=== PATIENT | male | born 1985 ===

== ENCOUNTER 2019-03-17 10:04 | Emergency (ER) | payer OTHER, MEDICAID, SELFPAY ==
[2019-03-17] VITALS (7 sets, daily range): BP systolic 101–127; BP diastolic 50–88; PULSE 113–126; RESP 12–26; TEMP 37.2; O2SAT 97–100
--- NOTE | 2019-03-17 11:03 | ED_ITS ---
HPI - Abdominal Pain General Chief Complaint: Abdominal Pain Stated Complaint: high fever/ stomach pain/ chills diarrhea Time Seen by Provider: 03/17/19 10:37 Source: patient and family Mode of arrival: Ambulatory Limitations: no limitations History of Present Illness HPI narrative: Patient is a 33-year-old male with history of multiple substance abuse including methamphetamines and heroin presenting with body aches fever and abdominal pain. He says actually started yesterday but he was able to do okay however this morning he was found in the bathroom after having large episode of diarrhea and significant left-sided abdominal pain. He supposedly had fever of 103 at home he did not take any Tylenol or ibuprofen in is currently afebrile here. He does take HIV preventative medication but does not have HIV. MD complaint: abdominal pain Onset (ago): day(s) (2) Pain Consistency: constant Location: diffuse, LUQ and LLQ Quality: cramping Radiation: none Migration to: no migration Relieving factors: nothing Exacerbating factors: nothing Related Data Allergies Allergy/AdvReac Type Severity Reaction Status Date / Time No Known Drug Allergies Allergy Verified 03/17/19 11:59 Review of Systems Review of Systems Narrative: GENERAL: Denies chills, fatigue, malaise, fever, sweats, travel HEENT: Denies sinus pain, ear pain, sore throat, difficulty swallowing, neck pain RESPIRATORY: Denies dyspnea, cough, wheezing, hemoptysis, sputum. CARDIOVASCULAR: Denies chest pain, palpitations, orthopnea, edema GASTROINTESTINAL: See HPI : Denies dysuria, frequency, incontinence, hematuria, urinary retention, flank pain. MUSCULOSKELETAL: Denies weakness, joint pain, or bony pain SKIN: No rash, no erythema, no pruritus NEUROLOGIC: Denies weakness, dizziness, headache, numbness, change in speech, confusion PSYCHIATRIC: No concerning psychosocial issues. 12 point review of systems is negative except for those stated above and HPI Patient History Medical History Patient denies medical problems (Acute) Social History Smoking Status: Current every day smoker substance use type: heroin Smoking Status: Current every day smoker tobacco type: cigarettes Substance Use Type: methamphetamine Exam Initial Vital Signs Initial Vital Signs: Vital Signs Temperature 99 F 03/17/19 10:36 Pulse Rate 120 H 03/17/19 10:36 Respiratory Rate 14 03/17/19 10:36 Blood Pressure 124/87 03/17/19 10:36 Pulse Oximetry 98 03/17/19 10:36 GENERAL: Alert young male appears in [id number] distress HEENT: Head atraumatic,EOMI, pupils reactive, face symmetric, dry mucous membranes CARDIOVASCULAR: Regular rate and rhythm without murmurs, rubs or gallops. RESPIRATORY: Breath sounds equal bilaterally, no wheezes rales or rhonchi. ABDOMEN: Soft, mildly tender on left side no real localization : No CVA tenderness EXTREMITIES: Normal range of motion, no clubbing or edema. Neurovascularly intact NEUROLOGICAL: Alert and oriented x4.Normal gait and speech. Cranial nerves II through XII grossly intact. SKIN: Warm, dry, no laceration, no petechiae, no rashes or lesions. Course Orders Ordered: ED Orders 03/17/19 10:30 Flu test [Influenza A & B (PCR)] Stat 03/17/19 11:30 Complete Blood Count AUTO DIFF Stat Comprehensive Metabolic Panel Stat Lactate (Lactic Acid) Stat Lipase Stat Procalcitonin Stat 03/17/19 12:06 GI Panel (Film Array) Stat Urinalysis and Microscopic Stat Urine Drug Screen, Rapid Stat 03/17/19 12:15 Blood Culture Stat 03/17/19 12:32 CT abdomen pelvis w con Stat Discontinued Medications Sodium Chloride (Normal Saline 0.9%) 1,000 mls @ 1,000 mls/hr IV CONT DEMETRICE Last Infusion: 03/17/19 12:57 Dose: 0 mls/hr Documented by: Admin: 03/17/19 11:19 Dose: 1,000 mls/hr Documented by: SHANNA Sodium Chloride (Normal Saline 0.9%) 1,000 mls @ 1,000 mls/hr IV BOLUS ONE Stop: 03/17/19 16:07 Last Infusion: 03/17/19 16:36 Dose: 0 mls/hr Documented by: Admin: 03/17/19 15:09 Dose: 1,000 mls/hr Documented by: SHANNA Ketorolac Tromethamine (Toradol) 30 mg IV NOW ONE Stop: 03/17/19 11:29 Last Admin: 03/17/19 11:58 Dose: 30 mg Documented by: SHANNA Vital Signs Vital signs: Vital Signs - 8 hr 03/17/19 10:36 03/17/19 11:41 03/17/19 13:19 Temperature 99 F Pulse Rate 120 H 113 H 115 H Respiratory Rate 14 14 Blood Pressure 124/87 Blood Pressure [Left Arm] 114/65 110/53 L Pulse Oximetry 98 100 03/17/19 14:09 03/17/19 15:01 03/17/19 15:41 Temperature Pulse Rate 113 H 114 H 126 H Respiratory Rate 12 19 26 H Blood Pressure Blood Pressure [Left Arm] 111/50 L 111/67 127/88 Pulse Oximetry 100 100 97 03/17/19 16:37 Temperature Pulse Rate 123 H Respiratory Rate 21 Blood Pressure Blood Pressure [Left Arm] 101/51 L Pulse Oximetry 98 MDM - Abdominal Pain Lab Data Attestation: I reviewed the patient's lab results. Result diagrams: 03/17/19 11:30 03/17/19 11:30 Labs: Lab Results 03/17/19 03/17/19 03/17/19 Range/Units 10:30 11:30 11:30 WBC 5.2 (4.5-11.0) X10^3/uL RBC 5.74 (4.5-5.9) X10^6/uL Hgb 17.6 H (13.5-17.5) g/dL Hct 50.7 (41-53) % MCV 88.2 (80-100) fL MCH 30.7 (26-34) PG MCHC 34.8 (30-36) % RDW 12.8 (11.6-14.8) % Plt Count 246 (150-400) X10^3/uL Neut % (Auto) 76.9 H (50-75) % Lymph % (Auto) 8.6 L (25-40) % [place] % (Auto) 14.4 H (3-14) % Eos % (Auto) 0.0 L (2-4) % Baso % (Auto) 0.1 (0-2) % Neut # (Auto) 4000 (8640-5961) /uL Lymph # (Auto) 400 L (3898-5382) /uL [place] # (Auto) 800 (0-900) /uL Eos # (Auto) 0 (0-450) /uL Baso # (Auto) 0 (0-100) /uL Sodium 133 L (137-145) mmol/L Potassium 3.8 (3.4-5.1) mmol/L Chloride 92 L (98-107) mmol/L Carbon Dioxide 30 (22-32) mmol/L BUN 14 (9-20) mg/dL Creatinine 0.90 (0.66-1.25) mg/dL Estimated GFR > 60.0 (>60) mL/min BUN/Creatinine Ratio 15.6 (6-22) Glucose 104 H (70-100) mg/dL Lactate (0.7-2.1) mmol/L Calcium 8.7 (8.4-10.2) mg/dL Total Bilirubin 2.0 H (0.2-1.3) mg/dL AST 23 (17-59) IU/L ALT 23 (<50) IU/L Alkaline Phosphatase 64 (38-126) U/L Total Protein 7.5 (6.3-8.2) g/dL Albumin 4.1 (3.5-5.0) g/dL Globulin 3.4 (1.7-4.1) g/dL Albumin/Globulin Ratio 1.2 (1.0-2.8) Lipase 28 (23-300) U/L Procalcitonin (<0.5) ng/mL Urine Color Urine Appearance Urine pH (4.5-8.0) Ur Specific [place] (1.000-1.035) Urine Protein (Negative) Urine Glucose (UA) (Negative) g/dL Urine Ketones (NEGATIVE) Urine Occult Blood (Negative) Urine Nitrate (Negative) Urine Bilirubin (NEGATIVE) Urine Urobilinogen (0.2) E.U./dL Ur Leukocyte Esterase (NEGATIVE) Urine RBC (0-5/HPF) Urine WBC (0-5/HPF) Ur Squamous Epith Cells (0-5/HPF) Urine Bacteria (None) Urine Mucus (Negative) Ur Culture Indicated? Stl C. cayetanensis PCR (Not Detect) Stool Rotavirus (PCR) (Not Detect) Stool Adenovirus (PCR) (Not Detect) Stool Astrovirus (PCR) (Not Detect) Stool Cryptosporidium PCR (Not Detect) Stl E.coli Shiga Tox PCR (Not Detect) St Sh/Enteroin Ecoli PCR (Not Detect) Stool E coli O157 PCR Stl Enterotoxigenic E PCR (Not Detect) Stool EPEC (PCR) (Not Detect) Stl E. histolytica PCR (Not Detect) Stool Giardia Lamblia PCR (Not Detect) Stool Sapovirus (PCR) (Not Detect) Stl P. shigelloides PCR (Not Detect) St Y.enterocolitica PCR (Not Detect) Stool Vibrio (PCR) (Not Detect) Stl Vibrio cholerae PCR (Not Detect) Stl Enteroaggr Ecoli PCR (Not Detect) Stl Norovirus GI/GII PCR (Not Detect) U Opiates 300ng/mL cut (Negative) Ur Oxycodone Screen (Negative) Urine Methadone Screen (Negative) Ur Barbiturates Screen (Negative) U Tricyclic Antidepress (Negative) Ur Phencyclidine Scrn (Negative) Ur Amphetamines Screen (Negative) U Methamphetamines Scrn (Negative) Ur MDMA Scrn (Ecstasy) (Negative) U Benzodiazepines Scrn (Negative) Urine Cocaine Screen (Negative) U Marijuana (THC) Screen (Negative) Campylobacter (PCR) (Not Detect) C. difficile Tox (PCR) (Not Detect) Influenza A (RT-PCR) Flu a negative (NEGATIVE) Influenza B (RT-PCR) Flu b negative (NEGATIVE) Salmonella (PCR) (Not Detect) 03/17/19 03/17/19 03/17/19 Range/Units 11:30 11:30 12:06 WBC (4.5-11.0) X10^3/uL RBC (4.5-5.9) X10^6/uL Hgb (13.5-17.5) g/dL Hct (41-53) % MCV (80-100) fL MCH (26-34) PG MCHC (30-36) % RDW (11.6-14.8) % Plt Count (150-400) X10^3/uL Neut % (Auto) (50-75) % Lymph % (Auto) (25-40) % [place] % (Auto) (3-14) % Eos % (Auto) (2-4) % Baso % (Auto) (0-2) % Neut # (Auto) (3048-5599) /uL Lymph # (Auto) (8596-3101) /uL [place] # (Auto) (0-900) /uL Eos # (Auto) (0-450) /uL Baso # (Auto) (0-100) /uL Sodium (137-145) mmol/L Potassium (3.4-5.1) mmol/L Chloride (98-107) mmol/L Carbon Dioxide (22-32) mmol/L BUN (9-20) mg/dL Creatinine (0.66-1.25) mg/dL Estimated GFR (>60) mL/min BUN/Creatinine Ratio (6-22) Glucose (70-100) mg/dL Lactate 2.0 (0.7-2.1) mmol/L Calcium (8.4-10.2) mg/dL Total Bilirubin (0.2-1.3) mg/dL AST (17-59) IU/L ALT (<50) IU/L Alkaline Phosphatase (38-126) U/L Total Protein (6.3-8.2) g/dL Albumin (3.5-5.0) g/dL Globulin (1.7-4.1) g/dL Albumin/Globulin Ratio (1.0-2.8) Lipase (23-300) U/L Procalcitonin 1.47 H (<0.5) ng/mL Urine Color Urine Appearance Urine pH (4.5-8.0) Ur Specific [place] (1.000-1.035) Urine Protein (Negative) Urine Glucose (UA) (Negative) g/dL Urine Ketones (NEGATIVE) Urine Occult Blood (Negative) Urine Nitrate (Negative) Urine Bilirubin (NEGATIVE) Urine Urobilinogen (0.2) E.U./dL Ur Leukocyte Esterase (NEGATIVE) Urine RBC (0-5/HPF) Urine WBC (0-5/HPF) Ur Squamous Epith Cells (0-5/HPF) Urine Bacteria (None) Urine Mucus (Negative) Ur Culture Indicated? Stl C. cayetanensis PCR (Not Detect) Stool Rotavirus (PCR) (Not Detect) Stool Adenovirus (PCR) (Not Detect) Stool Astrovirus (PCR) (Not Detect) Stool Cryptosporidium PCR (Not Detect) Stl E.coli Shiga Tox PCR (Not Detect) St Sh/Enteroin Ecoli PCR (Not Detect) Stool E coli O157 PCR Stl Enterotoxigenic E PCR (Not Detect) Stool EPEC (PCR) (Not Detect) Stl E. histolytica PCR (Not Detect) Stool Giardia Lamblia PCR (Not Detect) Stool Sapovirus (PCR) (Not Detect) Stl P. shigelloides PCR (Not Detect) St Y.enterocolitica PCR (Not Detect) Stool Vibrio (PCR) (Not Detect) Stl Vibrio cholerae PCR (Not Detect) Stl Enteroaggr Ecoli PCR (Not Detect) Stl Norovirus GI/GII PCR (Not Detect) U Opiates 300ng/mL cut Negative (Negative) Ur Oxycodone Screen Negative (Negative) Urine Methadone Screen Negative (Negative) Ur Barbiturates Screen Negative (Negative) U Tricyclic Antidepress Negative (Negative) Ur Phencyclidine Scrn Negative (Negative) Ur Amphetamines Screen Positive H (Negative) U Methamphetamines Scrn Positive H (Negative) Ur MDMA Scrn (Ecstasy) Negative (Negative) U Benzodiazepines Scrn Negative (Negative) Urine Cocaine Screen Negative (Negative) U Marijuana (THC) Screen Positive H (Negative) Campylobacter (PCR) (Not Detect) C. difficile Tox (PCR) (Not Detect) Influenza A (RT-PCR) (NEGATIVE) Influenza B (RT-PCR) (NEGATIVE) Salmonella (PCR) (Not Detect) 03/17/19 03/17/19 Range/Units 12:06 12:06 WBC (4.5-11.0) X10^3/uL RBC (4.5-5.9) X10^6/uL Hgb (13.5-17.5) g/dL Hct (41-53) % MCV (80-100) fL MCH (26-34) PG MCHC (30-36) % RDW (11.6-14.8) % Plt Count (150-400) X10^3/uL Neut % (Auto) (50-75) % Lymph % (Auto) (25-40) % [place] % (Auto) (3-14) % Eos % (Auto) (2-4) % Baso % (Auto) (0-2) % Neut # (Auto) (9520-3654) /uL Lymph # (Auto) (0260-7094) /uL [place] # (Auto) (0-900) /uL Eos # (Auto) (0-450) /uL Baso # (Auto) (0-100) /uL Sodium (137-145) mmol/L Potassium (3.4-5.1) mmol/L Chloride (98-107) mmol/L Carbon Dioxide (22-32) mmol/L BUN (9-20) mg/dL Creatinine (0.66-1.25) mg/dL Estimated GFR (>60) mL/min BUN/Creatinine Ratio (6-22) Glucose (70-100) mg/dL Lactate (0.7-2.1) mmol/L Calcium (8.4-10.2) mg/dL Total Bilirubin (0.2-1.3) mg/dL AST (17-59) IU/L ALT (<50) IU/L Alkaline Phosphatase (38-126) U/L Total Protein (6.3-8.2) g/dL Albumin (3.5-5.0) g/dL Globulin (1.7-4.1) g/dL Albumin/Globulin Ratio (1.0-2.8) Lipase (23-300) U/L Procalcitonin (<0.5) ng/mL Urine Color Yellow Urine Appearance Clear Urine pH 5.0 (4.5-8.0) Ur Specific [place] >=1.030 H (1.000-1.035) Urine Protein 1+ H (Negative) Urine Glucose (UA) Negative (Negative) g/dL Urine Ketones 1+ H (NEGATIVE) Urine Occult Blood 1+ H (Negative) Urine Nitrate Negative (Negative) Urine Bilirubin Negative (NEGATIVE) Urine Urobilinogen 0.2 (0.2) E.U./dL Ur Leukocyte Esterase Negative (NEGATIVE) Urine RBC None seen (0-5/HPF) Urine WBC 0-1/hpf (0-5/HPF) Ur Squamous Epith Cells None seen (0-5/HPF) Urine Bacteria None seen (None) Urine Mucus 2+ H (Negative) Ur Culture Indicated? Cult not indicated Stl C. cayetanensis PCR Not detected (Not Detect) Stool Rotavirus (PCR) Not detected (Not Detect) Stool Adenovirus (PCR) Not detected (Not Detect) Stool Astrovirus (PCR) Not detected (Not Detect) Stool Cryptosporidium PCR Not detected (Not Detect) Stl E.coli Shiga Tox PCR Not detected (Not Detect) St Sh/Enteroin Ecoli PCR Detected H (Not Detect) Stool E coli O157 PCR Not Reportable Stl Enterotoxigenic E PCR Not detected (Not Detect) Stool EPEC (PCR) Not detected (Not Detect) Stl E. histolytica PCR Not detected (Not Detect) Stool Giardia Lamblia PCR Not detected (Not Detect) Stool Sapovirus (PCR) Not detected (Not Detect) Stl P. shigelloides PCR Not detected (Not Detect) St Y.enterocolitica PCR Not detected (Not Detect) Stool Vibrio (PCR) Not detected (Not Detect) Stl Vibrio cholerae PCR Not detected (Not Detect) Stl Enteroaggr Ecoli PCR Not detected (Not Detect) Stl Norovirus GI/GII PCR Not detected (Not Detect) U Opiates 300ng/mL cut (Negative) Ur Oxycodone Screen (Negative) Urine Methadone Screen (Negative) Ur Barbiturates Screen (Negative) U Tricyclic Antidepress (Negative) Ur Phencyclidine Scrn (Negative) Ur Amphetamines Screen (Negative) U Methamphetamines Scrn (Negative) Ur MDMA Scrn (Ecstasy) (Negative) U Benzodiazepines Scrn (Negative) Urine Cocaine Screen (Negative) U Marijuana (THC) Screen (Negative) Campylobacter (PCR) Not detected (Not Detect) C. difficile Tox (PCR) Not detected (Not Detect) Influenza A (RT-PCR) (NEGATIVE) Influenza B (RT-PCR) (NEGATIVE) Salmonella (PCR) Not detected (Not Detect) Imaging Data CT scan - abdomen/pelvis: Radiologist's Impression: PROCEDURE: CT ABDOMEN PELVIS W CON INDICATIONS: let sided pain. TECHNIQUE: After the administration of oral and intravenous contrast, 5 mm thick sections acquired from the diaphragms to the symphysis. 5 mm thick coronal and sagittal reformats were performed. For radiation dose reduction, the following was used: automated exposure control, adjustment of mA and/or kV according to patient size. COMPARISON: None. FINDINGS: Image quality: Diagnostic. ABDOMEN: Lung bases: Lung bases are clear. Heart size is normal. Solid organs: Liver is normal in size and enhancement. Gallbladder is slightly prominent in size, but does not appear to demonstrate well inflammation. Biliary system is non-dilated. Pancreas enhances normally. Spleen is normal in size and enhancement. No adrenal nodules. Kidneys are normal in size and enhancement, without hydron ephrosis. Peritoneum and bowel: The stomach and small bowel are unremarkable. No distended small bowel loops are evident. However, there may be areas of mild wall enhancement and wall thickening involving the jejunum. There is moderate thickening involving the wall of the entire colon with associated enhancement. No significant mesenteric inflammation is evident. There is no free fluid or loculated fluid collection. There is no free air. The appendix is well-visualized and normal. Nodes and vessels: No retroperitoneal or mesenteric adenopathy. Aorta and inferior vena cava are normal in caliber. Bones: No acute fracture or suspicious osseous lesion is present. PELVIS: Genitourinary: Bladder wall thickness is normal. Miscellaneous: No inguinal hernias or adenopathy. No free fluid or loculated fluid collection is identified. Bones: No suspicious bony lesions. No acute pelvic fractures. IMPRESSION: 1. Moderate thickening of the wall of the entire colon is suggestive of colitis. This may represent an infectious or inflammatory process and clinical correlation is recommended. 2. Questionable wall thickening of the jejunum. 3. No bowel obstruction. 4. Normal appendix. Dictated by: Jackson Goldsmith M.D. on 03/17/2019 at 12:35 Approved by: Jackson Goldsmith M.D. on 03/17/2019 at 12:38 MDM Narrative Medical decision making narrative: Patient had significant urgency for bowel movement. It was sent down for a stool culture. He is given 2 L of IV fluid he is able to tolerate oral fluids. Stool is positive for E coli. He has normal renal function and no sign of H U.S.. He is again reiterates that he does not have HIV he only takes HIV preventative medicine because of his high risk behavior. At this time recommend supportive care no need for antibiotics. There is multiple drug resistance. At this time he is able to tolerate fluids and overall appears well. Discussed with house member for everyone to wash hands. He was initially noted to be tachycardic however he was given 2 L of IV fluid on on the monitor I've seen his heart rate down to 103. She denies any recent heroin use and in fact his drug screen is negative for opiates. I doubt that this is opiate withdrawal. It is positive for methamphetamine and amphetamines, unlikely to be withdrawal from amphetamines and methamphetamine. Discharge Plan Departure Patient Disposition: Home Clinical Impression: Gastroenteritis, Enteroinvasive Escherichia coli infection Discharge Date/Time: 03/17/19 17:02 Instructions: DI for Bacterial Gastroenteritis -- Adult Activity Restrictions/Additional Instructions: 1) You have been diagnosed with E coli gastroenteritis 2) What to do: Drink frequent but small amounts of fluids. I recommend Gatorade or a Gatorade-like product, as it has small amounts of sugar and salts that improve fluid retention. 3) Take medications as directed 4) Follow up with your primary care provider in 2-3 days and follow up with ortho, urology etc 5) Return to ER if you should have any new or worsening symptoms such as, unable to hold down fluids the small volume oral rehydration strategy. For everyone else in the household WASH HANDS!!!!!!! Referrals: Amrit Carpenter MD [Primary Care Provider] -
[2019-03-17] MEDS: SODIUM CHLORIDE 0.9% 1,000 ML 1000 ML IV ×2 (11:19→15:09)
[2019-03-17 11:22] LABS: Influenza A - CEPHEID Flu A NEGATIVE (NEGATIVE); Influenza B - CEPHEID Flu B NEGATIVE (NEGATIVE)
[2019-03-17 11:45] LABS: Add Manual Diff / Slide Review NO; Basophils Absolute Auto 0 /uL (0-100); Basophils Percent Auto 0.1 % (0-2); Eosinophils Absolute Auto 0 /uL (0-450); Hematocrit 50.7 % (41-53); Hemoglobin 17.6 g/dL (13.5-17.5); Lymphocytes Absolute Auto 400 /uL (1100-4500); Lymphocytes Percent Auto 8.6 % (25-40); Mean Corpuscular HGB Conc 34.8 % (30-36); Mean Corpuscular Hemoglobin 30.7 PG (26-34); Mean Corpuscular Volume 88.2 fL (80-100); Monocytes Absolute Auto 800 /uL (0-900); Monocytes Percent Auto 14.4 % (3-14); Neutrophils Absolute Auto 4000 /uL (1500-7000); Neutrophils Percent Auto 76.9 % (50-75); Platelet Count 246 X10^3/uL (150-400); Red Blood Cell Count 5.74 X10^6/uL (4.5-5.9); Red Cell Distribution Width 12.8 % (11.6-14.8); White Blood Cell Count 5.2 X10^3/uL (4.5-11.0)
[2019-03-17 11:57] LABS: Alanine Aminotransferase 23 IU/L (<50); Albumin 4.1 g/dL (3.5-5.0); Albumin Globulin Ratio 1.2 (1.0-2.8); Alkaline Phosphatase 64 U/L (38-126); Aspartate Aminotransferase 23 IU/L (17-59); BUN Creatinine Ratio 15.6 (6-22); Blood Urea Nitrogen 14 mg/dL (9-20); Calcium 8.7 mg/dL (8.4-10.2); Carbon Dioxide 30 mmol/L (22-32); Chloride 92 mmol/L (98-107); Estimated Glomerular Filt Rate > 60.0 mL/min (>60); Globulin 3.4 g/dL (1.7-4.1); Glucose 104 mg/dL (70-100); HEMOLYSIS 30 (0-50); Lipase 28 U/L (23-300); Potassium 3.8 mmol/L (3.4-5.1); Sodium 133 mmol/L (137-145); Total Protein 7.5 g/dL (6.3-8.2)
[2019-03-17] MEDS: KETOROLAC 60 MG/2 ML VIAL 30 MG IV (11:58)
[2019-03-17 12:16] LABS: Procalcitonin 1.47 ng/mL (<0.5)
--- NOTE | 2019-03-17 12:32 | DI.CT.S_ITS ---
PROCEDURE: CT ABDOMEN PELVIS W CON INDICATIONS: let sided pain. TECHNIQUE: After the administration of oral and intravenous contrast, 5 mm thick sections acquired from the diaphragms to the symphysis. 5 mm thick coronal and sagittal reformats were performed. For radiation dose reduction, the following was used: automated exposure control, adjustment of mA and/or kV according to patient size. COMPARISON: None. FINDINGS: Image quality: Diagnostic. ABDOMEN: Lung bases: Lung bases are clear. Heart size is normal. Solid organs: Liver is normal in size and enhancement. Gallbladder is slightly prominent in size, but does not appear to demonstrate well inflammation. Biliary system is non-dilated. Pancreas enhances normally. Spleen is normal in size and enhancement. No adrenal nodules. Kidneys are normal in size and enhancement, without hydronephrosis. Peritoneum and bowel: The stomach and small bowel are unremarkable. No distended small bowel loops are evident. However, there may be areas of mild wall enhancement and wall thickening involving the jejunum. There is moderate thickening involving the wall of the entire colon with associated enhancement. No significant mesenteric inflammation is evident. There is no free fluid or loculated fluid collection. There is no free air. The appendix is well-visualized and normal. Nodes and vessels: No retroperitoneal or mesenteric adenopathy. Aorta and inferior vena cava are normal in caliber. Bones: No acute fracture or suspicious osseous lesion is present. PELVIS: Genitourinary: Bladder wall thickness is normal. Miscellaneous: No inguinal hernias or adenopathy. No free fluid or loculated fluid collection is identified. Bones: No suspicious bony lesions. No acute pelvic fractures. IMPRESSION: 1. Moderate thickening of the wall of the entire colon is suggestive of colitis. This may represent an infectious or inflammatory process and clinical correlation is recommended. 2. Questionable wall thickening of the jejunum. 3. No bowel obstruction. 4. Normal appendix. Dictated by: Jackson Goldsmith M.D. on 03/17/2019 at 12:35 Approved by: Jackson Goldsmith M.D. on 03/17/2019 at 12:38
[2019-03-17 12:35] LABS: Bacteria Urine None Seen; RBC Urine None Seen (0-5/HPF)
[2019-03-17 12:37] LABS: Appearance Urine UA CLEAR; Bilirubin Urine UA NEGATIVE (NEGATIVE); Color Urine UA YELLOW; Glucose Urine UA NEGATIVE (Negative); Ketones Urine UA 1+ (NEGATIVE); Leukocyte Esterase Urine UA NEGATIVE (NEGATIVE); Nitrite Urine UA NEGATIVE (Negative); Occult Blood Urine UA 1+ (Negative); Protein Urine UA 1+ (Negative); Specific Gravity Urine UA >=1.030 (1.000-1.035); Urobilinogen Urine UA 0.2 E.U./dL (0.2)
[2019-03-17 12:43] LABS: UR Morphine/Opiate cutoff 300 Negative (Negative); Ur Creatinine 100 (Normal); Ur Specific Gravity >1.030 (Normal); Urine Amphetamines Positive (Negative); Urine Barbiturates Negative (Negative); Urine Benzodiazepines Negative (Negative); Urine Cocaine Negative (Negative); Urine MDMA Negative (Negative); Urine Methadone Negative (Negative); Urine Methamphetamines Positive (Negative); Urine Oxycodone Negative (Negative); Urine Phencyclidine Negative (Negative); Urine Tetrahydrocannabinol Positive (Negative); Urine Tricyclic Antidepressant Negative (Negative); Urine pH 5 (Normal)
[2019-03-17 12:49] LABS: Culture Indicated Urine Cult Not Indicated; Mucus Urine 2+ (Negative); Squamous Epithelial Cell Urine None Seen (0-5/HPF); WBC Urine 0-1/HPF (0-5/HPF)
[2019-03-17 14:06] LABS: Campylobacter Not Detected (Not Detect); Clostridium difficile toxin AB Not Detected (Not Detect); Enteroaggregative E.coli Not Detected (Not Detect); Enteropathogenic E.coli Not Detected (Not Detect); Enterotoxigenic E.coli It/st Not Detected (Not Detect); Plesiomonsa shigelloides Not Detected (Not Detect); Salmonella Not Detected (Not Detect); Shiga-like toxin-prod E.coli Not Detected (Not Detect); Vibrio Not Detected (Not Detect); Vibrio cholerae Not Detected (Not Detect); Yersinia enterocolitica Not Detected (Not Detect)
[2019-03-17 14:07] LABS: Adenovirus F 40/41 Not Detected (Not Detect); Astrovirus Not Detected (Not Detect); Cryptosporidium Not Detected (Not Detect); Cyclospora cayetanensis Not Detected (Not Detect); Entamoeba histolytica Not Detected (Not Detect); Giardia lamblia Not Detected (Not Detect); Norovirus GI/GII Not Detected (Not Detect); Shigella/Enteroinvasive E.coli Detected (Not Detect)
[2019-03-17 14:08] LABS: Rotavirus A Not Detected (Not Detect); Sapovirus Not Detected (Not Detect)
== END 2019-03-17 17:02 | disposition home or self-care (01) ==
PROVIDERS: Emergency Provider Emergency Medicine; PCP Internal Medicine
DX: K52.9 Noninfective gastroenteritis and colitis, unspecified (principal); A49.8 Other bacterial infections of unspecified site; R50.9 Fever, unspecified
CPT/HCPCS: 36415; 74177; 80053; 80305; 81001; 83605; 83690; 84145; 85025; 87040; 87502; 87507; 96361; 96374; 99285; J1885; Q9967

== ENCOUNTER 2019-03-19 13:38 | Emergency (ER) | payer OTHER, MEDICAID, SELFPAY ==
[2019-03-19 13:41] VITALS: BP 118/65; PULSE 63; RESP 14; TEMP 37; O2SAT 99
[2019-03-19 15:10] LABS: Add Manual Diff / Slide Review NO; Basophils Absolute Auto 0 /uL (0-100); Basophils Percent Auto 0.4 % (0-2); Eosinophils Absolute Auto 0 /uL (0-450); Eosinophils Percent Auto 0.7 % (2-4); Hematocrit 43.7 % (41-53); Hemoglobin 15.3 g/dL (13.5-17.5); Lymphocytes Absolute Auto 1600 /uL (1100-4500); Lymphocytes Percent Auto 23.5 % (25-40); Mean Corpuscular Volume 88.5 fL (80-100); Monocytes Absolute Auto 1300 /uL (0-900); Monocytes Percent Auto 18.7 % (3-14); Neutrophils Absolute Auto 3900 /uL (1500-7000); Neutrophils Percent Auto 56.7 % (50-75); Platelet Count 209 X10^3/uL (150-400); Red Blood Cell Count 4.94 X10^6/uL (4.5-5.9); Red Cell Distribution Width 12.5 % (11.6-14.8); White Blood Cell Count 6.9 X10^3/uL (4.5-11.0)
[2019-03-19] MEDS: DICYCLOMINE 10 MG CAPSULE PO (15:10)
[2019-03-19] MEDS: ACETAMINOPHEN 325 MG TABLET 650 MG PO (15:11)
--- NOTE | 2019-03-19 15:16 | ED.ABDPAIN ---
HPI - Abdominal Pain <Manolo CortezKELLEE lambP - Last Filed: 03/20/19 01:48> General Chief Complaint: Abdominal Pain Stated Complaint: ABD px Time Seen by Provider: 03/19/19 14:36 Source: patient and EMS Mode of arrival: EMS Limitations: no limitations History of Present Illness HPI narrative: This is a 33-year-old male, smoker, who presents to ED with chief complaining of ongoing upper abdominal discomfort and cramping pain. Patient was evaluated here 2 days ago and diagnosed colitis from E coli and discharged to home and advised to increase fluid intake and to f/u with PCP. Patient reports his symptoms are somewhat improved and denies fever, chills, nausea or vomiting. Patient did get to eat or drink today since he was not at home but is able to tolerate p.o. intake and denies nausea. Patient reports ongoing diarrhea about 12 times a day with bloody stools. Patient denies chest pain, breathing difficulty. Patient had not taken any Tylenol or Motrin for discomfort. Patient is here to request pain medication. Related Data Previous Rx's Medication Instructions Recorded dicyclomine 10 mg PO TID #14 cap 03/19/19 Allergies Allergy/AdvReac Type Severity Reaction Status Date / Time No Known Drug Allergies Allergy Verified 03/17/19 11:59 Review of Systems <Manolo KhanKELLEEP - Last Filed: 03/20/19 01:48> Review of Systems Narrative: General: Denies fever, chills, fatigue, malaise, sweats. HEENT: Denies sinus pain, ear pain, sore throat, difficulty swallowing, dizziness. Respiratory: Denies dyspnea, cough, wheezing, hemoptysis, sputum. Cardiovascular: Denies chest pain, palpitations, orthopnea, edema. Gastrointestinal: See HPI : Denies dysuria, frequency, incontinence, hematuria, urinary retention. Musculoskeletal: Denies weakness, joint pain or bony pain. Skin: Denies rash, skin lesions, or other. Neurologic: Denies weakness, headache, numbness, change in speech, confusion, seizures, incoordination. Psychiatric: No concerning psychosocial issues. 12-point review of systems is negative except for those stated above. Patient History <[facility]aKorinKELLEE [facility] Last Filed: 03/20/19 01:48> Medical History Patient denies medical problems (Acute) Social History Smoking Status: Current every day smoker substance use type: heroin Smoking Status: Current every day smoker tobacco type: cigarettes Substance Use Type: methamphetamine Exam <GLORIA Russell - Last Filed: 03/20/19 01:48> Narrative Exam Narrative: GEN: Alert, oriented x 3, well appearing and nourished, and in no acute distress. Head: Normal cephalic, atraumatic. No scalp or temporal tenderness, palpable mass or rash. EYES: Pupils are equal, round, and reactive to light and accommodation. Extraocular muscles are intact bilaterally. There is no subconjunctival hemorrhage, exudate and sclera non-icteric. ENT: Bilateral auditory canals and tympanic membranes clear. Hearing grossly intact. Nose without bleeding, purulent discharge or deviation. Facial sinuses nontender to palpate. Mucous membrane moist, no mucosal lesion. Throat without erythema, tonsillar hypertrophy or exudate. Uvula in midline, airway patent. Neck: Trachea in midline. No JVD, non-tender without lymphadenopathy. No masses or thyroid megaly. Supple, non-tender and no meningeal signs. CARDIAC: Normal regular rate and rhythm without murmurs, gallops, or rubs. No chest wall tenderness. No peripheral edema, cyanosis or pallor. Capillary refill is less than 2 seconds. RESPIRATORY: Lungs are clear to auscultate bilaterally. No cough, wheezes, rales, or rhonchi. No stridor, respiratory distress, increase work of breathing, or accessary muscle used. ABD: Abdomen soft,TTP in generalized abdomen and non-distended. No guarding or rebound tenderness to palpate. Bowel sounds are normal in all 4 quadrants. There is no palpable masses or organomegaly. EXT: Full painless ROM of all extremities with no loss of sensation, strength, effusion or edema. SKIN: Warm, dry, normal color for patient. No erythema, lesions or rash over visible areas. BACK: Nontender without deformity or crepitance. No flank tenderness. NEUROLOGICAL: Alert and oriented to place, time and person. Sensation and motor function intact bilaterally. No facial droops, dysphasia. PSYCHIATRIC: Good judgement and reason, without hallucinations, abnormal affect or abnormal behaviors during the examination. Initial Vital Signs Initial Vital Signs: Vital Signs Temperature 98.6 F 03/19/19 13:41 Pulse Rate 63 03/19/19 13:41 Respiratory Rate 14 03/19/19 13:41 Blood Pressure 118/65 03/19/19 13:41 Pulse Oximetry 99 03/19/19 13:41 <Jimmy Hoang MD - Last Filed: 03/21/19 21:22> Initial Vital Signs Initial Vital Signs: Vital Signs Temperature 98.6 F 03/19/19 13:41 Pulse Rate 63 03/19/19 13:41 Respiratory Rate 14 03/19/19 13:41 Blood Pressure 118/65 03/19/19 13:41 Pulse Oximetry 99 03/19/19 13:41 Scores <GLORIA Russell - Last Filed: 03/20/19 01:48> GCS [place] coma scale eye opening: Spontaneous [place] coma scale verbal response: Orientated [place] coma scale motor response: Obey commands [place] coma scale total score: 15 Course <GLORIA Russell - Last Filed: 03/20/19 01:48> Orders Ordered: Discontinued Medications Acetaminophen (Tylenol) 650 mg PO NOW ONE Stop: 03/19/19 14:51 Last Admin: 03/19/19 15:11 Dose: 650 mg Documented by: CHERYL Dicyclomine HCl (Bentyl) 10 mg PO NOW ONE Stop: 03/19/19 14:51 Last Admin: 03/19/19 15:10 Dose: 10 mg Documented by: CHERYL Vital Signs Vital signs: Vital Signs - 8 hr 03/19/19 13:41 Temperature 98.6 F Pulse Rate 63 Respiratory Rate 14 Blood Pressure 118/65 Pulse Oximetry 99 <Jimmy Hoang MD - Last Filed: 03/21/19 21:22> Orders Ordered: Discontinued Medications Acetaminophen (Tylenol) 650 mg PO NOW ONE Stop: 03/19/19 14:51 Last Admin: 03/19/19 15:11 Dose: 650 mg Documented by: CHERYL Dicyclomine HCl (Bentyl) 10 mg PO NOW ONE Stop: 03/19/19 14:51 Last Admin: 03/19/19 15:10 Dose: 10 mg Documented by: CHERYL Vital Signs Vital signs: Vital Signs - 8 hr 03/19/19 13:41 Temperature 98.6 F Pulse Rate 63 Respiratory Rate 14 Blood Pressure 118/65 Pulse Oximetry 99 MDM - Abdominal Pain <Manolo Armenta-BlairGLORIA - Last Filed: 03/20/19 01:48> Differential Diagnosis Differential diagnosis: Likely abdominal pain, gastroenteritis and other (anemia, dehydration, HUS) Medical Records Attestation: I reviewed the patient's medical records. Lab Data Attestation: I reviewed the patient's lab results. Result diagrams: 03/19/19 15:05 03/19/19 15:05 Labs: Lab Results 03/19/19 03/19/19 Range/Units 15:05 15:05 WBC 6.9 (4.5-11.0) X10^3/uL RBC 4.94 (4.5-5.9) X10^6/uL Hgb 15.3 (13.5-17.5) g/dL Hct 43.7 (41-53) % MCV 88.5 (80-100) fL MCH 31.0 (26-34) PG MCHC 35.0 (30-36) % RDW 12.5 (11.6-14.8) % Plt Count 209 (150-400) X10^3/uL Neut % (Auto) 56.7 (50-75) % Lymph % (Auto) 23.5 L (25-40) % [place] % (Auto) 18.7 H (3-14) % Eos % (Auto) 0.7 L (2-4) % Baso % (Auto) 0.4 (0-2) % Neut # (Auto) 3900 (8625-6683) /uL Lymph # (Auto) 1600 (7269-9080) /uL [place] # (Auto) 1300 H (0-900) /uL Eos # (Auto) 0 (0-450) /uL Baso # (Auto) 0 (0-100) /uL Sodium 138 (137-145) mmol/L Potassium 3.6 (3.4-5.1) mmol/L Chloride 99 (98-107) mmol/L Carbon Dioxide 34 H (22-32) mmol/L BUN 4 L (9-20) mg/dL Creatinine 0.60 L (0.66-1.25) mg/dL Estimated GFR > 60.0 (>60) mL/min BUN/Creatinine Ratio 6.7 (6-22) Glucose 107 H (70-100) mg/dL Calcium 8.4 (8.4-10.2) mg/dL Total Bilirubin 0.5 (0.2-1.3) mg/dL AST 18 (17-59) IU/L ALT 17 (<50) IU/L Alkaline Phosphatase 58 (38-126) U/L Total Protein 6.5 (6.3-8.2) g/dL Albumin 3.4 L (3.5-5.0) g/dL Globulin 3.1 (1.7-4.1) g/dL Albumin/Globulin Ratio 1.1 (1.0-2.8) Lipase 130 D (23-300) U/L [facility] Narrative Medical decision making narrative: This is a 33-year-old male who presents to ED for pain medication for abdominal discomfort. Patient was evaluated 2 days ago for abdominal pain and diarrhea and was diagnosed with colitis secondary to E coli infection and discharged to home with return precautions, increase hydration, and strict hand hygiene. Patient reports his symptoms has been improving. He is able to tolerate fluids without vomiting. He continued to have bloody stool and diarrhea but has been feeling fatigued. He had not tried any Tylenol or Motrin before coming into ED. patient was medicated with Bentyl and Tylenol in ED. patient was able to tolerate liquid without vomiting. His vital signs has been stable without afebrile. Mild decreased H&H but within normal limit as 15.3/43.7 from 17.6/50.7 without leukocytosis. Normal platelet counts. Unremarkable chemistry within normal lipase. When patient was re-evaluated, patient was sleeping soundly and reports abdominal discomfort improved. Patient discharged to home with Bentyl and advised to increase hydration, take Tylenol and or Motrin as needed for discomfort with strict hand hygiene. Return precautions were discussed with the patient and patient verbalized understanding. <Jimmy Hoang MD - Last Filed: 03/21/19 21:22> Lab Data Labs: Lab Results 03/19/19 03/19/19 Range/Units 15:05 15:05 WBC 6.9 (4.5-11.0) X10^3/uL RBC 4.94 (4.5-5.9) X10^6/uL Hgb 15.3 (13.5-17.5) g/dL Hct 43.7 (41-53) % MCV 88.5 (80-100) fL MCH 31.0 (26-34) PG MCHC 35.0 (30-36) % RDW 12.5 (11.6-14.8) % Plt Count 209 (150-400) X10^3/uL Neut % (Auto) 56.7 (50-75) % Lymph % (Auto) 23.5 L (25-40) % [place] % (Auto) 18.7 H (3-14) % Eos % (Auto) 0.7 L (2-4) % Baso % (Auto) 0.4 (0-2) % Neut # (Auto) 3900 (5249-4491) /uL Lymph # (Auto) 1600 (6597-8669) /uL [place] # (Auto) 1300 H (0-900) /uL Eos # (Auto) 0 (0-450) /uL Baso # (Auto) 0 (0-100) /uL Sodium 138 (137-145) mmol/L Potassium 3.6 (3.4-5.1) mmol/L Chloride 99 (98-107) mmol/L Carbon Dioxide 34 H (22-32) mmol/L BUN 4 L (9-20) mg/dL Creatinine 0.60 L (0.66-1.25) mg/dL Estimated GFR > 60.0 (>60) mL/min BUN/Creatinine Ratio 6.7 (6-22) Glucose 107 H (70-100) mg/dL Calcium 8.4 (8.4-10.2) mg/dL Total Bilirubin 0.5 (0.2-1.3) mg/dL AST 18 (17-59) IU/L ALT 17 (<50) IU/L Alkaline Phosphatase 58 (38-126) U/L Total Protein 6.5 (6.3-8.2) g/dL Albumin 3.4 L (3.5-5.0) g/dL Globulin 3.1 (1.7-4.1) g/dL Albumin/Globulin Ratio 1.1 (1.0-2.8) Lipase 130 D (23-300) U/L Discharge Plan Departure Patient Disposition: Home Clinical Impression: Enteroinvasive Escherichia coli infection Discharge Date/Time: 03/19/19 16:58 Instructions: DI for Abdominal Pain-Adult, DI for Bacterial Gastroenteritis -- Adult Activity Restrictions/Additional Instructions: You have been diagnosed with [E coli infection and colitis. The lab test appears to be improved since 2 days ago. You're able to tolerate fluids while in ED. her pain improved after Tylenol and Bentyl.]. What to do: *Take your medications as directed. Please continue to take Bentyl as needed for stomach cramping discomfort 3 to 4 times a day and Tylenol 650 mg up to 4 times a day as needed for discomfort. Please continue to hydrate yourself well with water and sports drink. Good hand hygiene is very important to prevent transmitting disease to others. *Follow up with your primary care provider in 2-3 days, call for an appointment. Let them know you were seen in the ED and that we asked you to be seen in follow up. *Return to ED if you have any new, worsening, or concerning symptoms, such as [chest pain, breathing difficulty, passing out, increasing weakness, unable to tolerate fluids or any acute concerns]. Prescriptions: New dicyclomine 10 mg capsule 10 mg PO TID Qty: 14 RF: 0 Referrals: Amrit Carpenter MD [Primary Care Provider] -
[2019-03-19 15:25] LABS: Alanine Aminotransferase 17 IU/L (<50); Albumin 3.4 g/dL (3.5-5.0); Albumin Globulin Ratio 1.1 (1.0-2.8); Alkaline Phosphatase 58 U/L (38-126); Aspartate Aminotransferase 18 IU/L (17-59); BUN Creatinine Ratio 6.7 (6-22); Bilirubin Total 0.5 mg/dL (0.2-1.3); Blood Urea Nitrogen 4 mg/dL (9-20); Calcium 8.4 mg/dL (8.4-10.2); Carbon Dioxide 34 mmol/L (22-32); Chloride 99 mmol/L (98-107); Estimated Glomerular Filt Rate > 60.0 mL/min (>60); Globulin 3.1 g/dL (1.7-4.1); Glucose 107 mg/dL (70-100); HEMOLYSIS < 15 (0-50); Lipase 130 U/L (23-300); Potassium 3.6 mmol/L (3.4-5.1); Sodium 138 mmol/L (137-145); Total Protein 6.5 g/dL (6.3-8.2)
[2019-03-19 16:56] VITALS: BP 110/72; PULSE 70; RESP 18; O2SAT 98
== END 2019-03-19 16:58 | disposition home or self-care (01) ==
PROVIDERS: Emergency Provider Nurse Practitioner Family; PCP Internal Medicine
DX: A04.2 Enteroinvasive Escherichia coli infection (principal)
CPT/HCPCS: 36415; 80053; 83690; 85025; 99283